=== PATIENT | male | born 1950 | race African-American/Black ===

== ENCOUNTER 2024-12-08 12:29 | Emergency (ER) | payer OTHER ==
[~2024-12-08] VITALS: Ht 177.8 cm; Wt 61.0 kg
[2024-12-08 12:30] VITALS: O2SAT 99
[2024-12-08 13:47] LABS: BASOPHILS % 1.3 % (0.0-2.0); EOSINOPHILS % 4.7 % (0.0-5.0); HEMATOCRIT. 32.8 % (42.0-52.0); HEMOGLOBIN. 10.6 g/dL (14.0-18.0); LYMPHOCYTES % 26.2 % (20.0-50.0); MEAN CORPUSCULAR HEMOGLOBIN 29.2 pg (28.0-32.0); MEAN CORPUSCULAR HGB CONC 32.5 g/dL (31.0-37.0); MEAN CORPUSCULAR VOLUME 89.8 fL (80.0-94.0); MEAN PLATELET VOLUME 7.5 fl (7.4-10.4); MONOCYTES % 13.3 % (2.0-8.0); NEUTROPHILS % 54.5 % (40.0-76.0); PLATELET 141 x1000/uL (130-400); RED BLOOD CELL COUNT 3.65 mill/uL (4.7-6.1); RED CELL DISTRIBUTION WIDTH 19.7 % (11.6-14.6); WHITE BLOOD COUNT 4.6 x1000/uL (4.5-11.0)
[2024-12-08 14:14] LABS: CHLORIDE 98 mEq/L (98-107); POTASSIUM 3.6 mEq/L (3.5-5.1); SODIUM 137 mEq/L (136-145)
[2024-12-08 14:15] LABS: CALCIUM 9.3 mg/dL (8.7-10.4); CARBON DIOXIDE 34 mEq/L (21-32)
[2024-12-08 14:20] LABS: CREATININE 3.7 mg/dL (0.6-1.3); GLUCOSE 99 mg/dL (70-105); UREA NITROGEN BLOOD 13 mg/dL (9-23)
[2024-12-08 14:22] LABS: TROPONIN I HIGH SENSITIVITY 12 ng/L (3.0-53)
[2024-12-08] MEDS: HYDRALAZINE HCL 100MG TABLET PO ONE (14:33)
[2024-12-08] MEDS: METOPROLOL SUCCINATE 50MG ER TABLET PO STA (14:33)
[2024-12-08 14:55] VITALS: BP 195/86; PULSE 65; RESP 16; TEMP 36.4; O2SAT 99
== END 2024-12-08 15:00 | disposition home or self-care (01) ==
LOC: ER 12:29
DX: I12.0 Hypertensive chronic kidney disease with stage 5 chronic kidney disease or end stage renal disease (principal); N18.6 End stage renal disease; Z88.6 Allergy status to analgesic agent
CPT/HCPCS: 36415; 71045; 80048; 83880; 84484; 85025; 99284